=== PATIENT | female | born 1945 | race Caucasian/White ===

== ENCOUNTER 2019-01-10 17:58 | Emergency (ER) | payer MEDICARE, SELFPAY ==
[2019-01-10 18:11] VITALS: BP 176/69; PULSE 73; RESP 18; TEMP 36.7; O2SAT 98
[2019-01-10] MEDS: LIDO 1%/SOD BICARB 8.4% (10ML) 10 ML SYRINGE INJ (20:01)
[2019-01-10] MEDS: BACITRACIN OINT 0.9 GM PCKT 1 APPLIC TOP (21:04)
--- NOTE | 2019-01-10 21:15 | ED.WOUNDLAC ---
HPI - Wound/Laceration <HOWARD Louis-BC - Last Filed: 01/10/19 21:21> General Chief Complaint: Wound/Laceration Stated Complaint: laceration to index finger Right hand Time Seen by Provider: 01/10/19 19:32 Source: patient and family Mode of arrival: Ambulatory Limitations: no limitations History of Present Illness HPI narrative: The patient is a 73-year-old female with history of hypertension who presents with her for chief complaint of laceration to the index finger of her right hand. She states it happened approximately 330. She states her tetanus is up-to-date. She denies any numbness or tingling. She states that she has difficulty getting the laceration to stop bleeding. The patient states happened with a steak knife while cutting. Related Data Home Medications Medication Instructions Recorded Confirmed CA PANTOTHENATE/FOLIC ACID/VIT 1 tab PO BID #0 09/03/12 (MULTIVITAMIN) [D-HIST] PO PRN #0 09/03/12 [CO-Q10] 100 mg PO QDAY #0 10/23/15 Previous Rx's Medication Instructions Recorded metronidazole [MetroCream] 1 han TOPICAL BID #45 gm 07/16/16 losartan [Cozaar] 50 mg PO QDAY #90 tab 08/30/16 Allergies Allergy/AdvReac Type Severity Reaction Status Date / Time tetracycline [TETRACYCLINE] Allergy Intermediate HIVES Unverified 06/18/17 12:22 Review of Systems <HOWARD Louis-BC - Last Filed: 01/10/19 21:21> Review of Systems Narrative: GENERAL: Denies chills, fatigue, malaise, fever, sweats. HEENT: Denies sinus pain, ear pain, sore throat, difficulty swallowing, dizziness. RESPIRATORY: Denies dyspnea, cough, wheezing, hemoptysis, sputum. CARDIOVASCULAR: Denies chest pain, palpitations, orthopnea, edema, GASTROINTESTINAL: Denies nausea, vomiting, abdominal pain, diarrhea, constipation, melena. : Denies dysuria, frequency, incontinence, hematuria, urinary retention. MUSCULOSKELETAL: denies weakness, joint pain, or bony pain SKIN: See HPI NEUROLOGIC: Denies weakness, headache, numbness, change in speech, confusion, seizures, incoordination. PSYCHIATRIC: No concerning psychosocial issues. 12 point review of systems is negative except for those stated above Exam <CLIVE Louis - Last Filed: 01/10/19 21:21> Narrative Exam Narrative: GENERAL: This is a well-nourished, well-developed patient, in no acute distress HEAD: Atraumatic. Normocephalic. No temporal or scalp tenderness. EYES: Pupils equal round and reactive. Extraocular motions intact. No scleral icterus. No injection or drainage. ENT: Nose without bleeding, purulent drainage or septal hematoma. Throat without erythema, tonsillar hypertrophy or exudate. Uvula midline. Airway patent. NECK: Trachea midline. No JVD or lymphadenopathy. Supple, nontender, no meningeal signs. CARDIOVASCULAR: Regular rate and rhythm RESPIRATORY: No cough. No increased respiratory effort. No accessory muscle use. GASTROINTESTINAL: Able to flex and extend right index finger against resistance. Laceration as noted. Oozing blood. Capillary refill less than 2 seconds. EXTREMITIES: No clubbing, cyanosis, or edema. No joint tenderness, effusion, or edema noted. BACK: Nontender without deformity or crepitance. No flank tenderness. NEURO: AOx3. SKIN: 2 cm laceration well-approximated linear laceration parallel to nail on the lateral aspect of right index finger pain no obvious nail involvement, though does run along lateral aspect of nail Initial Vital Signs Initial Vital Signs: Vital Signs Temperature 98.0 F 01/10/19 18:11 Pulse Rate 73 01/10/19 18:11 Respiratory Rate 18 01/10/19 18:11 Blood Pressure 176/69 H 01/10/19 18:11 Pulse Oximetry 98 01/10/19 18:11 <Sam Gruber DO - Last Filed: 01/10/19 23:01> Initial Vital Signs Initial Vital Signs: Vital Signs Temperature 98.0 F 01/10/19 18:11 Pulse Rate 73 01/10/19 18:11 Respiratory Rate 18 01/10/19 18:11 Blood Pressure 176/69 H 01/10/19 18:11 Pulse Oximetry 98 01/10/19 18:11 Procedures <CLIVE Louis - Last Filed: 01/10/19 21:21> Laceration Repair Laceration 1: Site: hand Side (If applicable): right Size (cm): 2 Description: linear Depth: simple, single layer Local Anesthetic: lidocaine 1% and with bicarb Amount of anesthesia used (mL): 4 (Digit block) Pre-repair: wound explored, irrigated extensively (Cleansed with iodine) and deep structures intact Skin layer closed with: nylon Size (cm): 4-0 Number of sutures: 3 Technique: simple, interrupted Course <CLIVE Louis - Last Filed: 01/10/19 21:21> Orders Ordered: Discontinued Medications Bacitracin (Bacitracin) 1 applic TOP NOW ONE Stop: 01/10/19 21:02 Last Admin: 01/10/19 21:04 Dose: 1 applic Documented by: SARA Lidocaine/Sodium Bicarbonate (Buffered Lidocaine 10 Ml Syr) 10 ml INJ NOW ONE Stop: 01/10/19 19:53 Last Admin: 01/10/19 20:01 Dose: 10 ml Documented by: SARA Vital Signs Vital signs: Vital Signs - 8 hr 01/10/19 18:11 Temperature 98.0 F Pulse Rate 73 Respiratory Rate 18 Blood Pressure 176/69 H Pulse Oximetry 98 <Sam Gruber DO - Last Filed: 01/10/19 23:01> Orders Ordered: Discontinued Medications Bacitracin (Bacitracin) 1 applic TOP NOW ONE Stop: 01/10/19 21:02 Last Admin: 01/10/19 21:04 Dose: 1 applic Documented by: SARA Lidocaine/Sodium Bicarbonate (Buffered Lidocaine 10 Ml Syr) 10 ml INJ NOW ONE Stop: 01/10/19 19:53 Last Admin: 01/10/19 20:01 Dose: 10 ml Documented by: SARA Vital Signs Vital signs: Vital Signs - 8 hr 01/10/19 18:11 Temperature 98.0 F Pulse Rate 73 Respiratory Rate 18 Blood Pressure 176/69 H Pulse Oximetry 98 MDM - Wound/Laceration <CLIVE Louis - Last Filed: 01/10/19 21:21> MDM Narrative Medical decision making narrative: The patient is a 73-year-old female who presents with chief complaint of laceration. She has full range of motion against resistance. She states her tetanus is up-to-date declines an x-ray. Sutures were used as per procedural note. Discussed at length monitoring for signs and symptoms of infection such as redness pus and swelling. Patient has no questions or concerns upon discharge and states understanding of return precautions as well as follow-up care including suture removal. No questions or concerns upon discharge. Patient tolerated sutures well. Discharge Plan Departure Patient Disposition: Home Clinical Impression: Laceration Discharge Date/Time: 01/10/19 21:16 Instructions: DI for Laceration Repair, DI for Minor Laceration Activity Restrictions/Additional Instructions: Please monitor your laceration for signs and symptoms of infection. This includes redness fever or pus. Please follow up with primary care provider for suture removal in approximately 7 days. Please remember to follow up regarding neuro last tetanus. Please come back to the emergency department for any acute concerns Prescriptions: No Action [D-HIST] PO PRN Qty: 0 RF: 0 CA PANTOTHENATE/FOLIC ACID/VIT (MULTIVITAMIN) 1 tab PO BID Qty: 0 RF: 0 [CO-Q10] 100 mg PO QDAY Qty: 0 RF: 0 metronidazole [MetroCream] 0.75 % cream 1 han Topical BID Qty: 45 RF: 2 losartan [Cozaar] 50 MG tablet 50 mg PO QDAY Qty: 90 RF: 2 Referrals: Leonidas Robbins MD [Physician] - <Sam Gruber DO - Last Filed: 01/10/19 23:01> Sign Out Provider Sign Out Attestation: Dr Gruber Co-Sign Statement: I was available for consultation during this patient's emergency department visit. This chart is signed by myself for administrative purposes only. I did not have direct contact with this patient during this visit. They were seen independently by the APC.
== END 2019-01-10 21:16 | disposition home or self-care (01) ==
PROVIDERS: Emergency Provider Nurse Practitioner Family
DX: S61.210A Laceration without foreign body of right index finger without damage to nail, initial encounter (principal); W26.0XXA Contact with knife, initial encounter; Y93.9 Activity, unspecified; Y92.9 Unspecified place or not applicable
CPT/HCPCS: 12001; 96374; 99283

== ENCOUNTER → 2019-07-29 11:31 | Outpatient (CLI) | payer MEDICARE, SELFPAY ==
--- NOTE | 2019-07-29 | DI.MRI.S_ITS ---
PROCEDURE: MR LUMBAR SPINE WO CON INDICATIONS: Wedge compression fracture of third lumbar vertebra TECHNIQUE: Noncontrast sagittal T1 spin echo and T2 fast echo, sagittal STIR, axial T1 and T2 fast spin echo through the lumbar spine. In cases with scoliosis, additional coronal T2 fast spin echo may be performed. COMPARISON: [facility] Outside Film, RG, SPINE LUMB 2 OR 3VW, 07/26/2019, 14:15. FINDINGS: Image quality: Excellent. Alignment and Curvature: Mild levocurvature centered at L2-L3. Trace degenerative anterolisthesis of L4 on L5. Bone Marrow: There is a severe L3 compression fracture with mild persistent edema present consistent with a subacute fracture. There is a proximally 60% anterior vertebral body height loss. There is 6 mm of posterior retropulsion near the superior endplate mild canal stenosis. No other acute compression fractures are identified. Spinal Cord: Conus medullaris terminates at the L1-L2 level. Visualized cord demonstrates normal signal and size. Paraspinous Soft Tissues: No paravertebral masses. T12-L1: No canal stenosis or foraminal stenosis. L1-L2: No canal stenosis or foraminal stenosis. L2-L3: Mild disc bulge. Facet and ligament hypertrophy. Mild canal stenosis. Mild right foraminal stenosis. Moderate left foraminal stenosis with flattening deformity of the exiting left L2 nerve root. L3-L4: Moderate to severe multifactorial canal stenosis, unrelated to the fracture. Disc bulge and facet and ligament hypertrophy. Moderate bilateral foraminal narrowing with mild flattening deformity on the bilateral exiting L3 nerve roots. L4-L5: Severe multifactorial canal stenosis secondary to anterolisthesis of L4 on L5, disc bulge, and facet and ligament hypertrophy. Moderate bilateral foraminal narrowing with mild flattening deformity on the exiting bilateral L4 nerve roots. L5-S1: Question previous laminectomy. Disc bulge. Facet and ligament hypertrophy. Moderate right foraminal narrowing and mild left foraminal narrowing. IMPRESSION: 1. Severe subacute or acute on chronic L3 compression fracture with mild posterior retropulsion resulting in mild canal stenosis. 2. Multilevel multifactorial canal stenosis is mild at L2-L3, moderate to severe at L3-L4, and severe at L4-L5. 3. Multilevel foraminal narrowing as described above. Dictated by: Sanjiv Xavier M.D. on 07/29/2019 at 13:04 Approved by: Sanjiv Xavier M.D. on 07/29/2019 at 13:13
== END ==
PROVIDERS: Referring Provider Orthopaedic Surgery; Visit Provider Orthopaedic Surgery
DX: S32.030A Wedge compression fracture of third lumbar vertebra, initial encounter for closed fracture (principal); M48.061 Spinal stenosis, lumbar region without neurogenic claudication
CPT/HCPCS: 72148

== ENCOUNTER → 2019-08-01 09:11 | Outpatient (CLI) | payer MEDICARE, SELFPAY ==
[2019-08-02 02:34] LABS: COVID19 Sendout Not Detected (Not Detect)
== END ==
PROVIDERS: Visit Provider Physician Assistant
DX: Z01.818 Encounter for other preprocedural examination (principal)
CPT/HCPCS: 87635

== ENCOUNTER 2019-08-03 12:27 | Day surgery (SDC) | payer MEDICARE, SELFPAY ==
--- NOTE | 2019-07-30 14:27 | SUR.PREOP ---
Per Pt covid testing schd on thursday 08/03 here at [facility] clinic
[2019-08-03] VITALS (14 sets, daily range): BP systolic 84–202; BP diastolic 48–99; PULSE 61–77; RESP 10–18; TEMP 36.2–36.9; O2SAT 92–98; BMI 25.6
--- NOTE | 2019-08-03 | PATH_ITS ---
[facility] Accession Number: [id number] . 01 Material submitted: . back - L3 . 01 Diagnosis: Bone, L3, Biopsy: Blood elements only. MRV 08/04/2019 1419 Local . 01 Electronically signed: . Wendy Willams MD, Pathologist NPI- [id number] . 01 Gross description: . L3: Received in formalin is clotted blood measuring 0.4 x 0.4 x 0.2 in aggregate. Specimen is submitted in toto in 1 cassette. /PURVI 08/04/2019 0053 Local . 01 Pathologist provided ICD-10: S32.030D . 01 CPT . 076785 Performed at: 01 [facility] [address] [place] [address], [place], [place] [id number] MD Santhosh Acosta MD Phone: [phone]
--- NOTE | 2019-08-03 | DI.RAD.S_ITS ---
PROCEDURE: XR LUMBAR SPINE 2-3V INDICATIONS: L3 KYPHOPLASTY TECHNIQUE: 2 views of the lumbar spine were acquired. COMPARISON: [facility] Outside Film, RG, SPINE LUMB 2 OR 3VW, 07/26/2019, 14:15. FINDINGS: Spot fluoroscopic intraoperative images demonstrating L3 kyphoplasty. Incidentally noted extraosseous cement. Dictated by: Rony Lopez M.D. on 08/03/2019 at 16:37 Approved by: Rony Lopez M.D. on 08/03/2019 at 16:38
--- NOTE | 2019-08-03 13:13 | PM.HP.1 ---
History of Present Illness History of Present Illness Date Patient Seen: 08/03/19 Date of Onset of Symptoms: 07/24/19 Chief complaint: [id number] Narrative: 74-year-old female with intractable back pain. She fell off a ladder on 07/24/2019 and began having severe pain in her back. However, whenever she tries to stand up she gets severe pain running down the front of the left thigh. The leg feels weak. The leg pain resolves with sitting or laying down. The back pain is still severe. This has been progressing over the past week. The leg pain is unbearable at this point, even more so than the back pain. She cannot walk. No bowel or bladder changes. Patient History Medical History Compression fracture of L3 vertebra (Acute 07/24/19) HTN (hypertension) (Acute) Laceration of right index finger (Acute 01/10/19) Left sided sciatica (Acute) Osteoporosis (Acute) Surgical History Status post cataract extraction and insertion of intraocular lens of left eye (Acute 04/2017) Family & Social History Social History: household members spouse Tobacco & Substance use: Smoking Status Never smoker alcohol intake current alcohol intake frequency 0-2 drinks per day Substance Use Type does not use Meds Home Medications and Allergies Home Medications Medication Instructions Recorded Confirmed Type CA PANTOTHENATE/FOLIC ACID/VIT 1 tab PO BID #0 09/03/12 08/03/19 History (MULTIVITAMIN) [D-HIST] PO PRN #0 09/03/12 History coenzyme Q10 [Co Q-10] 100 mg PO DAILY #0 10/23/15 08/03/19 History metronidazole [MetroCream] 1 han TOPICAL BID #45 gm 07/16/16 08/03/19 Rx losartan [Cozaar] 50 mg PO QDAY #90 tab 08/30/16 08/03/19 Rx tramadol 100 mg PO DAILY PRN 08/03/19 08/03/19 History Allergies Allergy/AdvReac Type Severity Reaction Status Date / Time tetracycline [TETRACYCLINE] Allergy Intermediate HIVES Verified 08/03/19 12:43 Review of Systems Constitutional Constitutional: Denies chills and Denies fever(s) Respiratory Respiratory: Denies cough Exam Vital Signs (past 8 hours): - 08/03/19 12:59 Temperature 97.1 F L Pulse Rate 70 Respiratory Rate 16 Blood Pressure 194/81 H Pulse Oximetry 98 Oxygen Delivery Method Room Air Const Orientation: alert and oriented x3 Resp Auscultation: clear to auscultation bilaterally Cardio Rate: regular rate Rhythm: regular rhythm Neuro Other: Tender across the mid lumbar spine and the lumbosacral junction. 5/5 motor negative straight leg raise in both lower extremities. Objective Imaging Lumbar MRI: My impression: From 07/29/2019 shows moderate central stenosis L2-3, severe central stenosis L3-4 and L4-5. Acute compression fracture of L3 with mild buckling of the posterior wall but not causing stenosis from this. Assessment & Plan Assessment & Plan narrative: Acute L3 compression fracture on top of severe spinal stenosis. At this point her pain is absolutely miserable and she would like to proceed with surgical intervention. The plan is for a L3 kyphoplasty to stabilize this level. If she is getting some increased canal narrowing with standing from the buckling of the posterior wall, that should stabilize. If she is still having ongoing pain just from the stenosis itself, she may be looking at an epidural injection versus a multilevel laminectomy, which we have discussed.. Risks and benefits of doing a kyphoplasty were discussed. COVID-19 COVID-19 status: Negative Result date/Date tested (Pos, Neg/Pending): 08/01/19
[2019-08-03] MEDS: LACTATED RINGERS 1,000 ML 42 ML IV (13:15)
[2019-08-03] MEDS: fentaNYL 100 MCG/2 ML INJ IV ×5 (13:35→15:40)
--- NOTE | 2019-08-03 13:38 | SUR.PREOP ---
Addendum entered by Almita Sweeney R.N. 08/03/19 13:39: patient placed on continuous pulse oximetry Original Note: Patient states pain is 10/10. Dr. Walker notified of patient's pain level. Received new order to give fentanyl now.
--- NOTE | 2019-08-03 14:35 | PM.OP.1 ---
Operative Date/Time/Diagnoses Date of procedure: 08/03/19 Time of procedure: 14:35 Pre-op diagnosis: L3 compression fracture Age related osteoporosis with current pathologic fracture Back pain Post-op diagnosis: same Procedure & Clinicians Procedure: L3 kyphoplasty Same procedure as scheduled: Yes Indications: [age] year old female with intractable pain from L3 compression fracture. They had failed conservative management and requested operative intervention. Risks and benefits of surgery were discussed and appropriate consents were obtained. Surgeon: Scotty Sethi Click Yes if Unassisted: Yes Anesthesia Type: General Operative Notes Findings: None Closure Type: primary Specimen(s): other (L3 vertebral biopsy) Estimated Blood Loss (mL): 1 Procedure in detail: The patient was brought to the operating room and intubated on the table. They were then rolled over to the well-padded prone position. Time-out was performed. We confirmed positioning with two fluoroscopy views. The back was prepped and draped in the standard sterile fashion. Preoperative antibiotics were given. Using fluoroscopic guidance, the planned incision site was infiltrated with Marcaine with epinephrine and injected down to the entry site of the left pedicle of L3. A small stab incision was made and we advanced a Jamshiedi needle down the left pedicle into the vertebral body. A bone biopsy was harvested from this and sent to pathology. We then passed the DFine osteotome and opened it up to create a void inside the vertebral body. We then began injecting the cement. This was done with frequent fluoroscopy imaging. They do not appear to be any extravasation until we were done and removed our trocars and took our final x-rays. Cement had actually gone out laterally and tracked down the left side of the psoas muscle, but had not been visible underneath the handle of the trocar until we removed the trocar. This appeared anterior and lateral to where the L2 nerve root should be traveling. The wound was cleaned. Steri-Strips and sterile dressing were placed. Patient was rolled over, extubated, and brought to recovery without complications. Complications: none Post-operative Condition: stable Disposition: PACU Plan for aftercare: Outpatient. Activity as tolerated.
[2019-08-03] MEDS: CEFAZOLIN 2 GM/100 ML FROZ.PIGGY IV (14:36)
--- NOTE | 2019-08-03 14:54 | SUR.OPER ---
Prone on padded OR bed, head in foam head support, gel chest rolls, gel pad under knees, pillow under lower legs, toes free of pressure, arms secured on padded arm boards at <90 degrees abduction. Safety belt at thigh.
[2019-08-03] MEDS: BUPIVACAINE 0.25% W/ EPI (PF) 10 ML VIAL 60 ML INJ (14:58)
[2019-08-03] MEDS: HYDROMORPHONE 2 MG INJ IV ×6 (15:45→16:10)
[2019-08-03] MEDS: OXYCODONE/ACETAMINOPHEN 5/325 TABLET 1 TAB PO (15:50)
--- NOTE | 2019-08-03 16:39 | SUR.PHASEI ---
1435 Assumed care for break relief. Pt sitting up, oriented, denies pain and nausea. Water given.
--- NOTE | 2019-08-03 16:51 | SUR.PHASEI ---
occasionally desats into the mid-upper 80's, will transfer to phase II and continue to monitor O2 sat.
--- NOTE | 2019-08-03 17:54 | SUR.PHASEII ---
Addendum entered by Allison Santa R.N. 08/03/19 18:18: Placed on continuous pulse oximeter on arrival to phase II. Original Note: 1750 Resumed care; pt awake, VSS, occasional desat to 85%. Put on O2 at 1LNP, warm blanket given, HOB reclined so that she can rest. Denies pain/nausea. Her only concern voiced is in regards to her O2 sat.
--- NOTE | 2019-08-03 18:16 | SUR.PHASEII ---
Sleeping, Sat 100% on 1LNP, HR 59. O2 dc'd. Resp unlabored
--- NOTE | 2019-08-03 19:08 | SUR.PHASEII ---
1848 Maintained O2 sat on room air in mid 90s. VSS, IV dc'd, clothes given 1857 Voided, transferred with 2-person assist. Stable without pain/nausea. Priority boarding pass given. Denies having and questions or concerns
== END 2019-08-03 18:58 | disposition home or self-care (01) ==
PROVIDERS: PCP Family Medicine; Referring Provider Orthopaedic Surgery; Visit Provider Orthopaedic Surgery
PROC: (CPT 22514; principal; 2019-08-03 15:30)
DX: M80.08XA Age-related osteoporosis with current pathological fracture, vertebra(e), initial encounter for fracture (principal); S32.030A Wedge compression fracture of third lumbar vertebra, initial encounter for closed fracture; M54.42 Lumbago with sciatica, left side; M48.062 Spinal stenosis, lumbar region with neurogenic claudication; W11.XXXA Fall on and from ladder, initial encounter; I10 Essential (primary) hypertension
CPT/HCPCS: 22514; 72100; 76000; C1776; J0690; J1170; J2405; J2704; J3010

== ENCOUNTER → 2022-10-22 16:10 | Outpatient (CLI) | payer MEDICARE, SELFPAY ==
--- NOTE | 2022-10-22 | DI.MRI.S_ITS ---
PROCEDURE: MR WRIST RT WO CON INDICATIONS: RIGHT WRIST AND THUMB PAIN TECHNIQUE: Noncontrast coronal proton density fast spin echo and T2 fast spin echo with fat saturation; coronal 3-D gradient echo, axial T1 spin echo and T2 fast spin echo with fat saturation, sagittal T1 spin echo through the wrist. COMPARISON: None. FINDINGS: Image quality: Excellent. Bones and cartilage: Nondisplaced fracture of the distal radial metaphysis without extension to the distal radial articular surface. No significant step-off is seen at the distal radioulnar joint. No acute ulnar fracture. The scaphoid is intact. No additional fracture is seen in the wrist. The carpal bones are normally aligned. No evidence for avascular necrosis. Carpal ligaments: The scapholunate and lunotriquetral ligaments appear intact. In the absence of intra-articular contrast, the extrinsic carpal ligaments are not well identified. On sagittal images, the pisohamate ligament appears intact. Triangular fibrocartilage complex: The triangular fibrocartilage appears intact. Tendons and soft tissues: The carpal tunnel structures appear normal, including the median nerve. The ulnar nerve appears normal within Guyon's canal. There is tenosynovitis of the 1st extensor compartment tendons with antigen is fluid that is consistent with partial intrasubstance tearing. There appears to be complete tearing of the extensor pollicis longus tendon as it passes over the 2nd extensor compartment with proximal tendon retraction to the level of Gabe's tubercle and separation of tendon stumps by up to 1.8 cm. The remaining extensor tendon compartments demonstrate normal morphology, without pathologic tendon sheath fluid. No soft tissue ganglion cysts. IMPRESSION: 1. Nondisplaced transverse fracture of the distal radial metaphysis without extension to the distal radial articular surface. Surrounding osseous edema is present. 2. Complete tearing of the extensor pollicis longus tendon at the level of the proximal carpal row with retraction of the proximal stump to the level of Gabe's tubercle. 3. Partial tearing of the extensor pollicis brevis and abductor pollicis longus tendons in the 1st extensor compartment with superimposed de Quervain tenosynovitis. Approved by: Bernabe Harris M.D. on 10/23/2022 at 10:27
--- NOTE | 2022-10-22 | DI.MRI.S_ITS ---
PROCEDURE: MR HAND RT WO CON INDICATIONS: RIGHT WRIST AND THUMB PAIN TECHNIQUE: Noncontrast oblique coronal T1 spin echo and T2 fast spin echo with fat saturation, axial and sagittal T2 fast spin echo with fat saturation, through the thumb. COMPARISON: [facility], MR, MR WRIST RT WO CON, 10/22/2022, 16:49. None. FINDINGS: Image quality: Excellent. Bones: Nondisplaced fracture of the distal radius is partially imaged with surrounding osseous edema. The bones are normally aligned. No intra-osseous lesions. Mild degenerative changes at the 1st carpometacarpal joint and the 1st metacarpophalangeal joint. Soft tissues: The radial and ulnar collateral ligaments are intact at the 1st metacarpophalangeal and 1st interphalangeal joints. There is tenosynovitis of the 1st extensor compartment tendons with overlying soft tissue edema. The proximal portion of the extensor pollicis longus tendon is not well visualized and appears to be completely torn. The thenar musculature is normal in bulk. No ganglion cysts. IMPRESSION: 1. Nondisplaced fracture of distal radius with surrounding osseous edema. 2. Partial tearing of the extensor pollicis brevis and abductor pollicis longus tendons in the 1st extensor compartment with superimposed de Quervain tenosynovitis. 3. Complete tearing of the extensor pollicis longus tendon, which is better evaluated on the MRI of the wrist performed on the same day. Approved by: Bernabe Harris M.D. on 10/23/2022 at 10:28
== END ==
PROVIDERS: PCP Family Medicine; Referring Provider Family Medicine; Visit Provider Family Medicine
DX: S52.591A Other fractures of lower end of right radius, initial encounter for closed fracture (principal); S66.211A Strain of extensor muscle, fascia and tendon of right thumb at wrist and hand level, initial encounter; M65.4 Radial styloid tenosynovitis [de Quervain]; M25.531 Pain in right wrist; M79.644 Pain in right finger(s); R22.31 Localized swelling, mass and lump, right upper limb; R20.0 Anesthesia of skin; M85.80 Other specified disorders of bone density and structure, unspecified site; W19.XXXS Unspecified fall, sequela; Y92.009 Unspecified place in unspecified non-institutional (private) residence as the place of occurrence of the external cause
CPT/HCPCS: 73218; 73221